=== PATIENT | male | born 1975 | race Hispanic/Latino ===

== ENCOUNTER 2019-02-20 21:44 | Emergency (ER) | payer OTHER ==
[~2019-02-20] VITALS: Ht 170.2 cm; Wt 74.8 kg
[2019-02-20] MEDS ORDERED: NICARDIPINE HCL SOLN 20 MG in SODIUM CHLORIDE 0.9% 250ML 200 ML IV ONE (22:15)
[2019-02-20] MEDS ORDERED: NICARDIPINE HCL SOLN 10 ML ONE ×3 (22:17→22:33)
[2019-02-20] MEDS ORDERED: SODIUM CHLORIDE 0.9% 250ML 250 ML ONE ×2 (22:20→22:33)
--- NOTE | 2019-02-20 22:49 | Diagnostic Imaging Report ---
Examination: CT head without contrast Clinical Indication: Left arm weakness; left facial droop. Technique: Transaxial noncontrast images from the skull base through the vertex were obtained. Sagittal and coronal reformatted images were done. Dose modulation, iterative reconstruction, and/or weight based adjustment of the mA/kV was utilized to reduce the radiation dose to as low as reasonably achievable. Comparison: None. Findings: Scalp: No abnormalities. Bones: Intact. No fractures. No blastic or lytic lesions. Brain sulci: Appropriate for patient's age. Ventricles: Normal in size and configuration. No hydrocephalus. Extra-axial space: No abnormalities. Parenchyma: No masses, hemorrhage, or acute or chronic cortical based vascular insults. Suprasellar region: No abnormalities. Craniocervical junction: The foramen magnum is patent. No Chiari one malformation. Impression: No acute intracranial abnormality. Signed by: Dr. Keyonna Burns M.D. on 02/20/2019 10:45 PM
[2019-02-20] MEDS ORDERED: POTASSIUM CHLORIDE 20 MEQ TAB CR PO ONE (23:16)
[2019-02-20] MEDS ORDERED: POTASSIUM CHLORIDE 20 MEQ TAB CR PO STA (23:17)
[2019-02-20] MEDS ORDERED: ASPIRIN 325 MG TAB ONE (23:17)
[2019-02-20] MEDS ORDERED: ASPIRIN 325 MG TAB PO ONE (23:30)
== END 2019-02-21 00:50 | disposition other institution (70) ==
LOC: FSED 21:44
DX: R53.1 Weakness (principal); G45.9 Transient cerebral ischemic attack, unspecified; I10 Essential (primary) hypertension; E87.6 Hypokalemia; K52.9 Noninfective gastroenteritis and colitis, unspecified
CPT/HCPCS: 70450; 80053; 80076; 80307; 82553; 84484; 85025; 85610; 93005; 99284; J7050

== ENCOUNTER 2024-09-05 22:14 | Emergency (ER) | payer SELFPAY ==
[~2024-09-05] VITALS: Ht 177.8 cm; Wt 73.0 kg
[2024-09-05] MEDS: ASPIRIN 325 MG TAB PO STA (22:59)
[2024-09-05] MEDS: HYDRALAZINE HCL 20 MG/ML VIAL IV STA (22:59)
[2024-09-05] MEDS: CLONIDINE HCL 0.1 MG TAB PO ONE (23:47)
[2024-09-06] MEDS ORDERED: LOSARTAN POTASSIUM 25 MG TAB PO STA (00:14)
[2024-09-06] MEDS ORDERED: AMLODIPINE BESYLATE 10 MG TAB PO STA (00:17)
[2024-09-06] MEDS ORDERED: LOSARTAN POTASS25 MG PO (00:25)
[2024-09-06 00:48] VITALS: PULSE 68; RESP 16; TEMP 98.1
[2024-09-06] MEDS: AMLODIPINE BESYLATE 5 MG TAB PO STA (00:50)
[2024-09-06 00:51] VITALS: BP 176/101; PULSE 68; RESP 16; TEMP 98.4; O2SAT 99
== END 2024-09-06 00:52 | disposition home or self-care (01) ==
LOC: FSED 22:15
DX: I10 Essential (primary) hypertension (principal); R07.89 Other chest pain; Z91.148 Patient's other noncompliance with medication regimen for other reason
CPT/HCPCS: 70450; 71045; 80053; 80307; 81003; 82553; 83880; 84484; 85025; 85379; 96374; 99284; J0360; 93005